=== PATIENT | male | born 1940 | race Hispanic/Latino ===

== ENCOUNTER 2018-08-02 06:15 | Day surgery (SDC) | payer MEDICARE ==
[2018-07-31 14:35] VITALS: BP 147/78
[2018-07-31 14:51] LABS: BASOPHILS % (AUTO) 0.4 % (0.0-5.0); EOSINOPHILS % (AUTO) 2.6 % (0.0-8.0); HEMATOCRIT 44.3 % (42-54); LYMPHOCYTES % (AUTO) 25.6 % (21.0-51.0); MEAN CORPUSCULAR HEMOGLOBIN 30.5 pg (27.0-33.0); MEAN CORPUSCULAR HGB CONC 33.7 g/dL (32.0-36.0); MEAN CORPUSCULAR VOLUME 90.4 fL (79-99); MONOCYTES % (AUTO) 8.6 % (3.0-13.0); NEUTROPHILS % (AUTO) 62.8 % (40.0-77.0); NUCLEATED RED BLOOD CELLS 0.1 % (0.0-0.19); PLATELET COUNT (AUTO) 213 K/uL (130-400); RED CELL DISTRIBUTION WIDTH 14.6 % (11.0-15.5)
[2018-07-31 15:07] LABS: POTASSIUM 3.9 mmol/L (3.5-5.1)
--- NOTE | 2018-08-01 10:19 | NUR ---
CONSULT: DR. MELVIN VIEWED EKG RESULTS, NO ORDERS GIVEN. OK TO PROCEED WITH SURGERY.
[2018-08-02] VITALS (20 sets, daily range): BP systolic 117–150; BP diastolic 62–87
[~2018-08-02] VITALS: Ht 167.6 cm; Wt 100.2 kg
[~2018-08-02 06:15] MED LIST: AMLO2.5T4 PO; CEFTRIAXONE SODIUM 1 GM IVP PRN; CEFTRIAXONE SODIUM 1 GM IVP SCH; OLME40TA18 PO; TAMS0.4C32 PO
[2018-08-02] MEDS ORDERED: LACTATED RINGERS 1000ML 1,000 ML IV ONE (06:45)
[2018-08-02] MEDS ORDERED: PROPOFOL 10 MG/ML 20ML VIAL IV ONE (08:09)
[2018-08-02] MEDS ORDERED: FENTANYL CITRATE PF 50 MCG/1 ML 2ML VIAL ONE (08:09)
[2018-08-02] MEDS ORDERED: LIDOCAINE PF 2% 5ML ABBOJECT ONE (08:09)
[2018-08-02] MEDS ORDERED: EPHEDRINE SULFATE 50 MG/ML AMPULE ONE (08:50)
[2018-08-02] MEDS ORDERED: OPIUM/BELLADONNA ALKALOIDS 1 EACH SUPP.RECT RC ONE (09:57)
--- NOTE | 2018-08-02 11:35 | NUR ---
ASSESSMENT RECEIVED PT FROM Renato WALLACE RN. PT STATING HAS A PAIN SCALE OF A 3. 18 FR NUNES CATH DRAINING TO GRAVITY AT BEDSIDE WITH 600ML RED TINGE URINE IN BAG. FAMILY AT BEDSIDE.
[2018-08-02] MEDS ORDERED: PHENAZOPYRIDINE HCL 200 MG TABLET ONE (11:38)
--- NOTE | 2018-08-02 12:30 | NUR ---
DISCHARGE ORAL AND WRITTEN DISCHARGE INSTRUCTIONS GIVEN TO PT, PT AND DAUGHTER ALONG WITH PRESCRIPTION. DEMONSTRATION GIVEN ON HOW TO CHANGE LEG BAG TO NUNES USING ASEPTIC TECHNIQUE. ALL VERBALIZED UNDERSTANDING. NO OTHER QUESTIONS AT THIS TIME.
== END 2018-08-02 12:40 | disposition home or self-care (01) ==
LOC: DAH 06:15
PROVIDERS: ATTEND Urology
DX: N40.1 Benign prostatic hyperplasia with lower urinary tract symptoms (principal); R35.1 Nocturia; I10 Essential (primary) hypertension; Z79.899 Other long term (current) drug therapy; Z98.890 Other specified postprocedural states; R39.14 Feeling of incomplete bladder emptying
CPT/HCPCS: 36415; 52648; 80048; 85025; 88307; 93005; A4218; A4340; A4354; A4600; J0696; J2001; J2704; J3010; J3490; J7120 ×2

== ENCOUNTER 2019-09-19 06:04 | Day surgery (SDC) | payer MEDICARE ==
[2019-09-17 15:28] LABS: BASOPHILS % (AUTO) 0.4 % (0.0-5.0); EOSINOPHILS % (AUTO) 1.5 % (0.0-8.0); HEMATOCRIT 44.4 % (42-54); LYMPHOCYTES % (AUTO) 23.3 % (21.0-51.0); MEAN CORPUSCULAR HEMOGLOBIN 29.6 pg (27.0-33.0); MEAN CORPUSCULAR HGB CONC 32.4 g/dL (32.0-36.0); MEAN CORPUSCULAR VOLUME 91.2 fL (79-99); NEUTROPHILS % (AUTO) 65.5 % (40.0-77.0); PLATELET COUNT (AUTO) 208 K/uL (130-400); RED BLOOD CELL COUNT(AUTO) 4.87 MIL/uL (4.50-6.20); WHITE BLOOD COUNT (AUTO) 6.8 K/uL (4.8-10.8)
[2019-09-17 15:36] LABS: CREATININE 1.2 mg/dL (0.5-1.5)
--- NOTE | 2019-09-18 13:44 | NUR ---
EKG abnormal Ekg from 09/17/[address] Panchal, no new orders, ok to proceed with surgery
[2019-09-18 15:49] VITALS: BP 156/78
[2019-09-19] VITALS (17 sets, daily range): BP systolic 115–140; BP diastolic 42–77
[~2019-09-19] VITALS: Ht 167.6 cm; Wt 98.2 kg
[2019-09-19] MEDS: CEFTRIAXONE SODIUM 1 GM IVP SCH ×2 (06:00→08:00)
[~2019-09-19 06:04] MED LIST changes: -AMLO2.5T4 PO; +AMLO2.5T5 PO; -CEFTRIAXONE SODIUM 1 GM IVP PRN; -CEFTRIAXONE SODIUM 1 GM IVP SCH
[2019-09-19] MEDS ORDERED: LACTATED RINGERS 1000ML 1,000 ML IV ONE (06:57)
[2019-09-19] MEDS ORDERED: ONDANSETRON HCL 4 MG/2 ML VIAL ONE (07:38)
[2019-09-19] MEDS ORDERED: LIDOCAINE PF 2% 5ML ABBOJECT ONE (07:38)
[2019-09-19] MEDS ORDERED: DEXAMETHASONE SOD PHOSPHATE 10MG/ML 1ML VIAL ONE (07:38)
[2019-09-19] MEDS ORDERED: MIDAZOLAM HCL 1 MG/ML 2ML VIAL ONE (07:38)
[2019-09-19] MEDS ORDERED: NEOSTIGMINE 5MG/5ML SYR IV ONE (07:39)
[2019-09-19] MEDS ORDERED: ROCURONIUM 10MG/1ML SYR 10 MG/ML ML ONE (07:39)
[2019-09-19] MEDS ORDERED: GLYCOPYRROLATE 1 MG/5 ML SYRINGE ONE (07:39)
[2019-09-19] MEDS ORDERED: FENTANYL CITRATE PF 50 MCG/1 ML 2ML VIAL ONE (07:40)
[2019-09-19] MEDS ORDERED: PROPOFOL 10 MG/ML 20ML VIAL IV ONE (07:40)
[2019-09-19] MEDS ORDERED: EPHEDRINE SULFATE 50 MG/ML AMPULE ONE (08:29)
--- NOTE | 2019-09-19 10:10 | NUR ---
POST OP RECEIVED PT POST OP. REPORT RECEIVED FROM DRE EISENBERG RN. PT IN NO DISTRESS AND CALL LIGHT WITH IN REACH.
[2019-09-19] MEDS ORDERED: PHENAZOPYRIDINE HCL 200 MG TABLET ONE (10:37)
--- NOTE | 2019-09-19 10:40 | NUR ---
CATHETER NUNES BAG CHANGED TO LEG BAG. PT HAS PINKISH RED URINE FREE FROM BLOOD CLOTS AND MEATUS FREE FROM BLEEDING.
--- NOTE | 2019-09-19 11:00 | NUR ---
DISCHARGE PT AND DAUGHTER GIVEN DISCHARGE INSTRUCTIONS, SCRIPT AND HOW TO MANAGE NUNES CATHETER AND BAG. BOTH VOICED UNDERSTANDING. PT TAKEN OUT VIA W/C BY JUANA RICHARDSON RN AND DAUGHTER REINFORCED ON NUNES CATHETER CARE
== END 2019-09-19 11:00 | disposition home or self-care (01) ==
LOC: DAH 06:04
PROVIDERS: ATTEND Urology
DX: C67.9 Malignant neoplasm of bladder, unspecified (principal); R31.9 Hematuria, unspecified; I10 Essential (primary) hypertension; Z79.899 Other long term (current) drug therapy
CPT/HCPCS: 36415; 52234; 80048; 85025; 93005; A4215; A4221; A4222; A4223; A4344; A4354; A4358; A4510; A4600; A4663; A4930; A5120; A6260; J0696; J1100; J2001; J2250; J2405; J2704; J2710; J3010; J3490 ×2; J7030; J7120 ×2